=== PATIENT | female | born 1960 | race Caucasian/White ===

== ENCOUNTER 2019-10-25 06:46 | Day surgery (SDC) | payer MEDICARE, MEDICAID ==
[~2019-10-25 06:46] MED LIST: Buffered Lidocaine 1% SYRIN* 1 ML/SYRINGE INTRADERM ONE; Lactated Ringers 1000 ML Bag* 1,000 ML IV SCH
[2019-10-25] MEDS ORDERED: Propofol* 10 MG/ML 20 ML BTL ONE (09:03)
[2019-10-25] MEDS ORDERED: Midazolam* 1 MG/ML 2 ML VIAL (2 MG) ONE (09:03)
[2019-10-25] MEDS ORDERED: Lidocaine 2% PF * 5 ML VIAL ONE (09:03)
[2019-10-25] MEDS ORDERED: Acetaminophen TAB* 325 MG PO PRN (09:21)
[2019-10-25] MEDS ORDERED: Naloxone* 0.4 MG/ML 1 ML VIAL IV PRN (09:21)
[2019-10-25 09:49] VITALS: BP 152/78
--- NOTE | 2019-10-25 22:09 | PRO ---
CC: Dr. Evangelist Fitzgerald* ESOPHAGOGASTRODUODENOSCOPY REPORT: DATE OF PROCEDURE: 10/25/19 PRIMARY CARE PHYSICIAN: Dr. Evangelist Fitzgerald. INDICATION FOR PROCEDURE: Abdominal pain, GERD. PROCEDURE PERFORMED: Complete esophagogastroduodenoscopy with biopsies. MEDICATIONS GIVEN: Please see Anesthesia record. DESCRIPTION OF PROCEDURE: After the EGD procedure including the risks, benefits , and alternatives with the risks not limited to perforation, surgery, missed lesions, and/or were explained to the patient, written informed consent was obtained, IV medication was given, and a bite-block was placed between the teeth. The adult Olympus gastroscope was then inserted into the patient's oropharynx into the tubular esophagus. The tubular esophagus had mild GE junction variability, this was biopsied. Biopsies were also taken in the mid esophagus to rule out EoE given her complaint of dysphagia. The scope was advanced through the lower esophageal sphincter into the stomach. There was severe gastritis within the antrum and the body, this was biopsied extensively and also biopsied for CLOtesting. There was some scant hemorrhagic gastritis within the body. On retroflexion, the views were grossly normal. The scope was advanced through the widely patent pylorus into the duodenal bulb, C-loop, distal duodenum and these were normal in appearance; however, biopsies were taken given her symptomatology. The scope was then removed from the patient. She tolerated the procedure well. She returned to the recovery room in stable condition. IMPRESSION: 1. Complete esophagogastroduodenoscopy with biopsies. 2. Severe gastritis, biopsied and CLOtested. 3. Mild gastroesophageal junction variability, biopsied. 4. Biopsies taken of the mid esophagus to rule out eosinophilic esophagitis. 5. Normal esophagus, biopsies taken. RECOMMENDATIONS: We will see the results of these biopsies given the severe gastritis. If this is not infectious in etiology, she may need to be on PPI therapy. She states there was concern for possible renal dysfunction prior with PPI usage and we will investigate this more. However, given the severity of her gastritis, we may have to place her on a PPI for a short period of time while watching her creatinine. I will follow up on results of the biopsies and she can follow up with Anabella Boss in the office for further management. [id number]/[facility] #: [id number] [facility]
== END 2019-10-25 10:34 | disposition home or self-care (01) ==
LOC: OR 06:46
PROVIDERS: ATTEND Internal Medicine Gastroenterology
DX: K29.00 Acute gastritis without bleeding (principal); R10.9 Unspecified abdominal pain; R13.19 Other dysphagia; I10 Essential (primary) hypertension; E78.5 Hyperlipidemia, unspecified; R05 Cough; R19.7 Diarrhea, unspecified; E03.9 Hypothyroidism, unspecified; M54.2 Cervicalgia
CPT/HCPCS: 87077; 88305; 88342; J2250; J2704